=== PATIENT | female | born 1940 | race Caucasian/White ===

== ENCOUNTER → 2023-04-13 07:56 | Outpatient (REF) | payer MEDICARE, OTHER, SELFPAY ==
[2023-04-13 09:32] LABS: % Basophils 0.3 % (0-2); % Eosinophils 1.1 % (0-6); % Immature Granulocytes 0.3 % (0-0.5); % Lymphocytes 23.4 % (20.5-51.1); % Monocytes 6.6 % (1.7-9.3); % Neutrophils 68.3 % (42.2-75.2); Absolute Eosinophils 0.1 10^3/uL (0-0.7); Absolute Lymphocytes 1.8 10^3/uL (1.2-3.4); Absolute Monocytes 0.5 10^3/uL (0.1-0.6); Absolute Neutrophils 5.1 10^3/uL (1.4-6.5); Hematocrit 43.8 % (37.0-47.0); Hemoglobin 14.8 g/dL (12.0-16.0); Mean Corp Hgb Conc. 33.8 g/dL (33.0-37.0); Mean Corpuscular Hgb 30.1 pg (27.0-31.0); Nucleated Red Blood Cells % 0 %; Platelet Count 218 10^3/uL (130-400); Red Blood Cell Count 4.92 10^6/uL (4.20-5.40); Red Cell Dist. Width 13.1 % (11.5-14.5); White Blood Cell Count 7.5 10^3/uL (4.8-10.8)
[2023-04-13 10:18] LABS: ALT (SGPT) 15 U/L (0-35); AST (SGOT) 25 U/L (14-36); Albumin 3.8 g/dl (3.5-5.0); Alkaline Phosphatase 79 U/L (38-126); Blood Urea Nitrogen 14 mg/dl (7-17); Calcium 10.1 mg/dl (8.4-10.2); Carbon Dioxide 29 mmol/L (22-30); Chloride 100 mmol/L (98-107); Glucose 94 mg/dl (70-99); HDL Cholesterol 69 mg/dl; LDL Cholesterol, Calculated 122 mg/dl; Potassium 4.5 mmol/L (3.5-5.1); Sodium 138 mmol/L (135-145); Total Bilirubin 2.3 mg/dl (0.2-1.3); Total Cholesterol 224 mg/dl (50-199); Total Protein 6.1 g/dl (6.3-8.2); Triglyceride 169 mg/dl (10-149); Very Low Density Lipoprotein 33 mg/dl (0-30); eGFR > 60.00
[2023-04-16 04:52] LABS: Albumin 3.94 g/dL (3.75-5.01); Alpha 1 Globulin 0.27 g/dL (0.19-0.46); Alpha 2 Globulin 0.66 g/dL (0.48-1.05); Free Kappa Light Chains,Quant 24.71 mg/L (3.30-19.40); IgA 219 mg/dL (68-408); IgG 622 mg/dL (768-1632); IgM 88 mg/dL (35-263); Immunofixation Electrophoresis IFE Done; Kappa/Lambda Fr Light Ratio 1.87 (0.26-1.65); Total Protein-Electrophoresis 6.3 g/dL (6.3-8.2)
== END ==
LOC: HWLAB 07:56
PROVIDERS: ATTENDING PHYSICIAN Family Medicine
DX: E03.9 Hypothyroidism, unspecified (principal); E78.2 Mixed hyperlipidemia; F32.0 Major depressive disorder, single episode, mild; R77.8 Other specified abnormalities of plasma proteins
CPT/HCPCS: 36415; 80053; 80061; 82784; 83521; 84155; 84165; 85025; 86334

== ENCOUNTER → 2023-05-05 08:09 | Outpatient (REF) | payer MEDICARE, OTHER, SELFPAY ==
[2023-05-05 10:00] LABS: % Basophils 0.5 % (0-2); % Eosinophils 1.3 % (0-6); % Immature Granulocytes 0.3 % (0-0.5); % Lymphocytes 26.9 % (20.5-51.1); % Monocytes 7.9 % (1.7-9.3); % Neutrophils 63.1 % (42.2-75.2); Absolute Eosinophils 0.1 10^3/uL (0-0.7); Absolute Lymphocytes 1.6 10^3/uL (1.2-3.4); Absolute Monocytes 0.5 10^3/uL (0.1-0.6); Absolute Neutrophils 3.8 10^3/uL (1.4-6.5); Hematocrit 41.3 % (37.0-47.0); Mean Corp Hgb Conc. 33.9 g/dL (33.0-37.0); Mean Corpuscular Hgb 29.9 pg (27.0-31.0); Mean Corpuscular Volume 88.1 fL (81.0-99.0); Mean Platelet Volume 10.2 fL (7.4-10.4); Nucleated Red Blood Cells % 0 %; Platelet Count 259 10^3/uL (130-400); Red Blood Cell Count 4.69 10^6/uL (4.20-5.40); Red Cell Dist. Width 13.2 % (11.5-14.5); White Blood Cell Count 6.1 10^3/uL (4.8-10.8)
[2023-05-05 10:20] LABS: ALT (SGPT) 14 U/L (0-35); AST (SGOT) 23 U/L (14-36); Albumin 3.8 g/dl (3.5-5.0); Alkaline Phosphatase 79 U/L (38-126); Blood Urea Nitrogen 17 mg/dl (7-17); Calcium 9.3 mg/dl (8.4-10.2); Carbon Dioxide 29 mmol/L (22-30); Chloride 107 mmol/L (98-107); Glucose 74 mg/dl (70-99); Iron 90 ug/dl (37-170); Potassium 4.3 mmol/L (3.5-5.1); Sodium 138 mmol/L (135-145); Total Bilirubin 1.8 mg/dl (0.2-1.3); Total Protein 6.1 g/dl (6.3-8.2); eGFR > 60.00
[2023-05-05 11:33] LABS: TSH Reflex To Free T4 1.55 uIU/ml (0.47-4.68)
[2023-05-05 11:37] LABS: Ferritin 42.7 ng/ml (11.1-264.0)
[2023-05-05 11:52] LABS: Vitamin B12 731 pg/ml (239-931)
== END ==
LOC: HWLAB 08:09
PROVIDERS: ATTENDING PHYSICIAN Family Medicine
DX: R42 Dizziness and giddiness (principal); E03.9 Hypothyroidism, unspecified; R79.89 Other specified abnormal findings of blood chemistry; R53.83 Other fatigue
CPT/HCPCS: 36415; 80053; 82607; 82728; 83540; 84443; 85025

== ENCOUNTER → 2023-05-23 09:08 | Outpatient (REF) | payer MEDICARE, OTHER, SELFPAY | LOC: HWRCS 09:08 | PROVIDERS: ATTENDING PHYSICIAN Family Medicine | DX: R07.1 Chest pain on breathing (principal) | CPT/HCPCS: 93306 ==

== ENCOUNTER 2023-05-31 18:17 | Observation (INO) | payer MEDICARE, OTHER, SELFPAY ==
[2023-05-31] VITALS (7 sets, daily range): BP systolic 112–149; BP diastolic 63–88; BMI 26.7; BMI 27.5
[2023-05-31 16:06] LABS: % Basophils 0.4 % (0-2); % Eosinophils 0.7 % (0-6); % Immature Granulocytes 0.4 % (0-0.5); % Lymphocytes 23.6 % (20.5-51.1); % Monocytes 7.4 % (1.7-9.3); % Neutrophils 67.5 % (42.2-75.2); Absolute Eosinophils 0.1 10^3/uL (0-0.7); Absolute Lymphocytes 1.7 10^3/uL (1.2-3.4); Absolute Monocytes 0.5 10^3/uL (0.1-0.6); Absolute Neutrophils 4.8 10^3/uL (1.4-6.5); Mean Corpuscular Hgb 30.2 pg (27.0-31.0); Mean Corpuscular Volume 86.2 fL (81.0-99.0); Mean Platelet Volume 10.1 fL (7.4-10.4); Nucleated Red Blood Cells % 0 %; Platelet Count 236 10^3/uL (130-400); Red Blood Cell Count 4.64 10^6/uL (4.20-5.40); White Blood Cell Count 7.2 10^3/uL (4.8-10.8)
[2023-05-31 16:17] LABS: Potassium 3.8 mmol/L (3.5-5.1)
[2023-05-31 16:18] LABS: ALT (SGPT) 19 U/L (0-35); AST (SGOT) 30 U/L (14-36); Alkaline Phosphatase 88 U/L (38-126); Blood Urea Nitrogen 16 mg/dl (7-17); Calcium 9.6 mg/dl (8.4-10.2); Carbon Dioxide 26 mmol/L (22-30); Chloride 100 mmol/L (98-107); Glucose 160 mg/dl (70-99); Sodium 133 mmol/L (135-145); Total Bilirubin 1.6 mg/dl (0.2-1.3); Total Protein 6.3 g/dl (6.3-8.2); eGFR > 60.00
--- NOTE | 2023-05-31 16:40 | ED.CVA ---
History of Present Illness
General
Chief Complaint: CVA/TIA Symptoms
Time Seen by Provider: 05/31/23 15:39
Onset of Stroke Symptoms
Onset of symptoms known: No
Time pt last seen normal is known: No
Travel History
Have you had any contact with someone who has COVID-19?: No
Do you have any symptoms of coronavirus? Fever > 100 degrees, chills, cough, shortness of breath, sore throat, loss of taste or smell, muscle aches, or headache?: No
History of Present Illness
History of Present Illness:
82-year-old female with history of hypercholesterolemia not currently medicated presents for evaluation of intermittent lightheadedness, difficulty with word finding, gait instability ongoing for the past 2 to 3 weeks. She saw her primary care
physician as an outpatient and had an echocardiogram 8 days ago that showed mild aortic sclerosis without stenosis and mild mitral regurgitation, no significant abnormalities otherwise. Underwent outpatient MRI this morning that showed punctate
subacute to acute stroke in the right parietal region. She denies any vision changes or dizziness currently. Denies any chest pain or shortness of breath. Denies any palpitations associated with these lightheaded episodes. No leg swelling or
extremity paresthesias
Past History
Past History
ED Past Medical History: Cancer (lung s/p XRT 2018), Hypercholesterolemia, Hypothyroidism and Other (SHEREE, IBS, renal stones)
ED Past Surgical History: None
Social History
Alcohol: None
Review of Systems
Review of Systems
Allergies reviewed?: Yes
All Other Systems: ROS reviewed and negative except as documented in HPI and ROS
Phy Exam
Physical Exam
Physical Exam:
GEN: Well appearing, NAD, WDWN
HEENT: Oral mucosa moist, no scleral icterus, no nasal congestion
Cardiac: Regular rate
Lung: No respiratory distress, no tachypnea
MSK: No gross deformity or injuries
Skin: Good color, no pallor or jaundice, no rashes
Neuro: AO x3; CN II-XII grossly intact. BUE strength 5/5 in all collins, sensation intact and symmetric. BLE strength 5/5 in all collins, sensation intact and symmetric, no limb ataxia x 4
Psych: Calm, cooperative
Course
Orders/Labs/Results
Orders:
Orders
05/31/23 Dinner
Cholesterol Lowering
At Your Request: Limited Participation
Cholesterol Lowering: Sodium, 2 Gram
05/31/23 15:59
Complete Blood Count/With Diff Urgent
Comprehensive Metabolic Panel Urgent
05/31/23 16:33
Aspirin 325 mg PO NOW STA
Clopidogrel Bisulfate [Plavix] 75 mg PO NOW STA
05/31/23 16:42
Electrocardiogram (*1) Urgent
Reason for Study: QTc Monitoring
EKG- Treatment ONCE
05/31/23 17:41
Admit/Transfer Patient As Directed
Co-Sign Provider:
Level of Care: Observation services
Assign to:: Telemetry
Physician / Group: rory sandoval
Diagnosis: acute /suabcute parietal cva
Reason for Telemetry: CVA/TIA
Date to Stop Telemetry: 06/03/23
Time to Stop Telemetry: 11:00
Reason for Hospitalization: acute /suabcute parietal cva
Code Status As Directed
Resuscitation Status: Full Code
05/31/23 19:41
Acetaminophen [Tylenol] 650 mg PO Q4HPRN PRN
Bisacodyl [Dulcolax] 10 mg RECTAL DAILYPRN PRN
Docusate W/Senna [Senokot-S] 1 tablet PO BIDPRN PRN
Lactobac/Bifidobac [Visbiome] 1 cap PO DAILYPRN PRN
Polyethylene Glycol Powder [Miralax] 17 grams PO DAILYPRN PRN
05/31/23 19:41
Activity As Directed
Activity Level: As Tolerated
Pneumatic Compression Sleeves As Directed
Type: Knee high
Vital Signs As Directed
Frequency: Per unit guidelines
Ot Eval And Treat Routine
Pt Eval And Treat Routine
Activity Level: As Tolerated
DX Deep Vein Thrombosis Video Routine
06/01/23 06:00
Basic Metabolic Panel IN AM
Cardiovascular Evaluation IN AM
Complete Blood Count/With Diff IN AM
Hgba1c [Glycohemoglobin (HgbA1c)] IN AM
Levothyroxine [Synthroid] 88 mcg PO MoTuWeThFrSa@0600
Carotid US [US Cerebrovascular] IN AM
Comment:
Reason For Exam: acute cva
06/01/23 08:00
Aspirin Chewable [Low Strength Aspirin] 81 mg PO DAILY
Clopidogrel Bisulfate [Plavix] 75 mg PO DAILY
06/03/23 11:00
DC Protocol for Telemetry ONCE
06/05/23 08:00
levothyroxine [Tirosint] 176 mcg PO DENIS@0600
Abnormal Lab Results
05/31/23
15:59
Sodium 133 L mmol/L
(135-145)
Glucose 160 H mg/dl
(70-99)
Total Bilirubin 1.6 H mg/dl
(0.2-1.3)
05/31/23 15:59
05/31/23 15:59
Vital Signs
Initial and Last Documented VS:
Initial Vital Signs
Temp Pulse Resp BP Pulse Ox
99.0 F 62 16 145/84 98
05/31/23 15:11 05/31/23 15:11 05/31/23 15:11 05/31/23 15:11 05/31/23 15:11
Last Documented Vital Signs
Temp Pulse Resp BP Pulse Ox
98.1 F 78 18 138/79 98
05/31/23 20:51 05/31/23 20:51 05/31/23 20:51 05/31/23 20:51 05/31/23 20:51
MDM/Problems Addressed
MDM/Problems Addressed:
Patient is currently neurologically intact with no focal deficits. MRI findings were discussed with neurology who recommended admission for further workup and management, dual antiplatelet load started in the emergency department
*Critical Care Note
Total Time (30-74mins, 75-104mins- exclusive of procedures): Not Applicable
ED Attending Note
-
Portions of this chart may have been created with voice recognition software.� Occasional wrong word or��sound alike� substitutions may have occurred due to the inherent limitations of voice recognition software.
Discharge Plan
Departure
Patient Disposition: Admit
Date of Disposition: 05/31/23
Time of Disposition: 16:43
Admit to: Telemetry
Presentation/result/management discussed w/ accepting MD/DO: Hospitalist
Discharge Problem:
Parietal lobe infarction
Interventions
Interventions:
*Risk Screen - Suicide Last Done: 05/31/23 18:30
*General Assessment Last Done: 05/31/23 15:11
*Neglect/Abuse Screening Last Done: 05/31/23 15:11
ED- Fall Risk Assessment Last Done: 05/31/23 15:55
*ED COVID-19 Vaccine History Last Done: 05/31/23 18:30
*Nursing Disposition Last Done: 05/31/23 19:47
ED- Pulmonary Assessment Last Done: 05/31/23 15:55
ED- Neurological Assessment Last Done: 05/31/23 15:55
ED- Cardiac Assessment Last Done: 05/31/23 15:55
ED Swallowing Screen Last Done: 05/31/23 15:55
Discharge Date and Time
Discharge Date/Time: 05/31/23 19:48
--- NOTE | 2023-05-31 17:02 | HPS.HSE ---
Family Physician
-
Family Physician: Ronni Han
Chief Complaint
-
Abnormal MRI, lightheadedness, frontal headache, gait instability, difficulty with word finding x 6 weeks
History of Present Illness
82-year-old female complaining of intermittent lightheadedness, frontal headache, gait instability and difficulty with word finding over the past 6 weeks. She reports she went to an outpatient [facility] center and they were unable to figure out what
was going on. She then went to her PCP who ordered an MRI. She had outpatient MRI this morning 05/31/2023 showing a acute to subacute punctate right parietal infarct. She reports she had outpatient echo 8 days ago showing mild aortic sclerosis
without stenosis and mild mitral regurg. She denies current headache, dizziness, blurred vision, fever, chills, chest pain, palpitations, shortness breath, cough, abdominal pain, nausea, vomiting, diarrhea, urinary symptoms. She has past medical
history of lung cancer status post XRT 2018, SHEREE, HLD, hypothyroidism, IBS, renal calculi.
Medical History
Past Medical History
Past Medical History: Reports Other
Additional Past Medical History:
Adenocarcinoma lung cancer status post XRT 2018,
SHEREE resolved with weight loss per patient
HLD
hypothyroidism
IBS
renal calculi
Macular degeneration right eye
Past Surgical History: Reports Other
Additional Past Surgical History:
Bilateral shoulder replacements, bilateral meniscus repair
Social History
Tobacco: Non-smoker
Alcohol: None
Drug: None
Personal: Single
Living: Alone
Employment: Retired
Family History
Family History: Other (Mother complications of lupus, CHF, father leukemia at age 57 patient's 1 brother unsure of medical problems)
Allergies / Home Medications
Allergies reflects when Allergies were last updated in [facility].
Home Medications with original date entered in [facility]
Allergy/Medication List:
Allergies
Allergy/AdvReac Type Severity Reaction Status Date / Time
wheat Allergy Mild Unknown Verified 06/19/21 10:48
Cephalosporins Allergy Patient is Verified 07/10/21 09:51
unaware of
this
allergy
metronidazole [From Flagyl] Allergy Rash Verified 06/19/21 10:48
Penicillins Allergy Rash. Verified 06/19/21 10:48
Shortness
of breath.
levofloxacin [From Levaquin] AdvReac joint pain Verified 06/19/21 10:48
oxycodone [Oxycodone] AdvReac agitation Verified 06/19/21 10:48
[id number] Reductase AdvReac Myalgias Verified 06/19/21 10:48
Inhibitor
iv contrast dye Allergy Unknown Anaphylaxis Uncoded 04/07/21 11:36
airborne type allergies Allergy nasal Uncoded 04/07/21 11:36
symptoms
Home Medications
Lactobac no.2-Bifidobac no.1-S. thermo 112.5 billion cell capsule (Visbiome) 1 cap PO DAILY PRN supplement 05/31/23
acetaminophen 500 mg tablet (Tylenol Extra Strength) 1,000 mg PO DAILYPRN PRN severe pain 05/31/23
acetaminophen 500 mg tablet (Tylenol Extra Strength) 500 mg PO DAILYPRN PRN mild pain 05/31/23
levothyroxine 88 mcg capsule (Tirosint) 88 mcg PO MOTUWETHFRSA@0800 05/31/23
levothyroxine 88 mcg capsule (Tirosint) 176 mcg PO DENIS@0800 05/31/23
psyllium seed (sugar) oral powder 1 tsp PO DAILYPRN PRN constipation 05/31/23
vit C 250 mg-vit E 90 mg-zinc 40 mg-copper 1 [id number] capsule (PreserVision AREDS-2) 1 tab PO BID 05/31/23
Review of Systems
-
History Source: Patient and Family (Daughter at bedside)
A 12 point ROS was completed and negative except as noted: Yes
Constitutional: Denies Fever or Chills
EENT: Reports Other (Intermittent word finding difficulty); Denies Sore Throat
Respiratory: Denies Cough or Trouble Breathing
Cardiac: Denies Chest Pain, Diaphoresis, Palpitations or Syncope
Abdomen/GI: Denies Abdominal Pain, Nausea, Vomiting, Diarrhea, Constipated, Bloody Stools or Black Stools
: Denies Dysuria, Frequency, Flank Pain, Incontinence, Difficulty Voiding or Urgency
Musculoskeletal: Denies Joint Pain or Edema
Skin: Denies Itching or Rash
Neurological: Reports Dizzy (Intermittent) and Headache (Intermittent frontal headache); Denies Weakness or Numbness
Endocrine: Reports No Symptoms
Hematologic/Lymphatic: Reports No Symptoms
Psych: Reports Calm
Physical Exam
Vital Signs
Vital Signs
Temp Pulse Resp BP Pulse Ox
99.0 F 89 12 112/63 96
05/31/23 15:11 05/31/23 15:45 05/31/23 15:45 05/31/23 15:42 05/31/23 15:45
Physical Exam
General: No Apparent Distress, Comfortable and Conversant; No Pain, Fever or Chills
HEENT: NormoCephalic, Anicteric, PERRLA, [place] Conjunctivae, No Ptosis and Neck Nontender
Respiratory: Clear; No Wheezes, Rales or Rhonchi
Cardiac: S1/S2, Regular Rhythm and Murmur (2/6); No Rub, Gallop or Peripheral Edema
GI: Soft, Non Tender, Non Distended, Normal Bowel Sounds and No Hepatosplenomegaly
Rectal: Deferred by Provider
Genito-urinary: Deferred by me
Musculoskeletal: No Clubbing, No Cyanosis and No Edema
Skin: Warm and Dry; No Rash
Neuro: AO x 3, No Motor Deficits, Nonfocal/grossly intact, Cranial Nerves Intact and No Sensory Deficits; No Slurred Speech, Facial Droop or Tremors
Psych: Calm
Laboratory Results
-
05/31/23 15:59
05/31/23 15:59
Laboratory Results
Total Bilirubin 1.6 mg/dl (0.2-1.3) H 05/31/23 15:59
AST 30 U/L (14-36) 05/31/23 15:59
ALT 19 U/L (0-35) 05/31/23 15:59
Alkaline Phosphatase 88 U/L (38-126) 05/31/23 15:59
Impression/Plan
-
Impression/plan:
Observation telemetry
#Acute/subacute right parietal lobe infarct
-Consult neuro
-check lipid profile, HgbA1c
-Aspirin 81 mg daily, Plavix 75 mg daily no statins due to allergy with myalgias
-Check carotid ultrasound
-PT/OT/case management eval
MRI brain: Punctate acute/subacute nonhemorrhagic right parietal lobe infarct
2D echo 05/23/2023: EF 65-70%, mild LVH, mild MR, aortic sclerosis without stenosis, trace TR(read by [facility] cardiology)
#HLD
-Check lipid profile
#Hypothyroidism/total thyroidectomy benign polyps
Continue levothyroxine 88 mcg daily except Sundays 176 mcg
# Adenocarcinoma lung cancer status post XRT 2017
#SHEREE
-Used former CPAP sleep apnea resolved with weight loss per patient
#IBS hx
#Renal calculi Hx
#Macular degeneration right eye
Follows with ophthalmology has been stable
DVT prophylaxis
SCDs
Full code
[2023-05-31] MEDS: ASPIRIN 325 MG PO (17:08)
[2023-05-31] MEDS: PLAVIX 75 MG PO (17:08)
--- NOTE | 2023-05-31 18:49 | W.PN.UPDATE ---
Update Note
Progress Note Update
This is an addendum to the H&P written by nurse practitioner Jane Mares on 05/31/2023.
Patient seen and examined independently with [facility].� 82-year-old female past medical history of lung cancer status post XRT, obstructive sleep apnea, hyperlipidemia, hypothyroidism, IBS, presenting with gait instability/frontal headache/intermittent
lightheadedness and word finding difficulty for the past 6 weeks.� He had outpatient MRI today which showed acute/subacute right parietal infarct.� Recently had echocardiogram which showed EF of 65 to 70%, mild mitral regurgitation.
Started aspirin and Plavix.� Check carotid ultrasound.� Neurology consulted.� PT/OT.
--- NOTE | 2023-05-31 19:49 | PTCARENOTE ---
pt arrived from ed, walked in, tele placed, VSS, pt [id number], see MAR and assessment for further details. call cedeno within reach.
[2023-05-31] MEDS: TYLENOL 650 MG PO (19:56)
[2023-06-01] MEDS: TYLENOL 650 MG PO ×2 (03:28→12:42)
[2023-06-01 03:43] VITALS: BP 143/82
[2023-06-01 06:00] LABS: % Basophils 0.5 % (0-2); % Immature Granulocytes 0.2 % (0-0.5); % Lymphocytes 31.2 % (20.5-51.1); % Monocytes 8.1 % (1.7-9.3); Absolute Eosinophils 0.1 10^3/uL (0-0.7); Absolute Lymphocytes 1.9 10^3/uL (1.2-3.4); Absolute Monocytes 0.5 10^3/uL (0.1-0.6); Absolute Neutrophils 3.5 10^3/uL (1.4-6.5); Hematocrit 39.7 % (37.0-47.0); Hemoglobin 13.3 g/dL (12.0-16.0); Mean Corp Hgb Conc. 33.5 g/dL (33.0-37.0); Mean Corpuscular Hgb 29.6 pg (27.0-31.0); Mean Corpuscular Volume 88.4 fL (81.0-99.0); Mean Platelet Volume 9.7 fL (7.4-10.4); Nucleated Red Blood Cells % 0 %; Platelet Count 187 10^3/uL (130-400); Red Blood Cell Count 4.49 10^6/uL (4.20-5.40); Red Cell Dist. Width 12.8 % (11.5-14.5)
[2023-06-01] MEDS: NON-FORMULARY ITEM 1 UNIT PO (06:50)
[2023-06-01 06:55] LABS: Blood Urea Nitrogen 18 mg/dl (7-17); Calcium 9.5 mg/dl (8.4-10.2); Carbon Dioxide 29 mmol/L (22-30); Chloride 104 mmol/L (98-107); Estimated Creatinine Clearance 56 ml/min; Glucose 88 mg/dl (70-99); HDL Cholesterol 67 mg/dl; LDL Cholesterol, Calculated 105 mg/dl; Potassium 4.4 mmol/L (3.5-5.1); Sodium 137 mmol/L (135-145); Total Cholesterol 196 mg/dl (50-199); Triglyceride 121 mg/dl (10-149); Very Low Density Lipoprotein 24 mg/dl (0-30); eGFR > 60.00
[2023-06-01 07:37] VITALS: BP 122/81
[2023-06-01] MEDS: PLAVIX 75 MG PO (07:42)
[2023-06-01] MEDS: LOW STRENGTH ASPIRIN 81 MG PO (07:42)
--- NOTE | 2023-06-01 08:03 | CON.NEURO4 ---
Addendum entered and electronically signed by Ignacio Desir MD 06/01/23 15:45:
I saw and evaluated the patient I reviewed the note by Linette Saldivar agree with the findings the following comments:
82-year-old woman right-handed who presents to the hospital after outpatient finding of MRI brain demonstrating 2 recent ischemic infarctions. Brain MRI was obtained due to the patient having had dizziness and being off balance. She had first
started to have some unusual neurologic symptoms at the end of March with frontal headache vision change bilaterally as well as dizziness. Is also felt an off-balance feeling. No overt weakness or speech difficulty. Does not take chronic
antiplatelet.
Neurologic examination unremarkable
Brain MRI shows a subacute ischemic stroke in the left parietal lobe as well as more acute appearing infarct in the right frontal lobe
Carotid ultrasound shows less than 50% stenosis bilaterally
Assessment: Embolic strokes, no significant carotid stenosis. Cardioembolic would be a important consideration but this could also be atheroembolic stroke.
Recommendations
-Aspirin and Plavix for 21 days total then aspirin thereafter
-Would start with short course of 1 to 2 weeks Holter cardiac monitoring and if this is negative would pursue implanted cardiac Linq monitor
-Discussed with patient my recommendation that she consider Zetia as she does not tolerate any statins
-No further workup as an inpatient necessary needs neurology follow-up in 4 to 6 weeks as well as PCP follow
Original Note:
Documented by User: Linette Harper NP 06/01/23 13:45
Consultation - Neurology 4
-
CONSULTING PHYSICIAN: Lee Desir MD
REFERRING PHYSICIAN: Hospitalists/
DICTATED BY: LUBNA Grijalva
DATE/TIME OF REQUEST: 06/01/23
DATE/TIME OF CONSULTATION: 06/01/23
Reason for Consultation: CVA
History of Present Illness:
This is an 82-year-old right-handed female who has presented to the hospital with report of outpatient MRI brain demonstrating an acute right parietal ischemic stroke. Patient reports that 6-7 weeks ago developing floaters in bilateral eyes, a
frontal headache, and a dizzy sensation like the room was spinning. The spinning sensation only lasted a few minute, but was followed by a constant sensation of feeling off-balance when walking. She typically walks a mile per day and hasn't felt
comfortable doing this anymore. She endorses an intermittent, almost daily dull frontal headache that she rates a 3-4/10. Additionally, she had an episode of a nava curtain coming down over the top 1/3 of her left eye vision, this resolved in 2-3
minutes. She reports having the same thing happen with the right eye briefly in the past as well. She also had periodic episodes of word finding difficulty. She endorses a left-sided chest strain sensation as well that feels like she pulled a
muscle. She was evaluated by her PCP for these symptoms early in April 2023. She had an echo on 05/23/23 that demonstrated mild aortic sclerosis without stenosis and mild mitral regurgitation. She also went to outpatient vestibular therapy and was
told they could not find a peripheral source of her dizziness. She had an outpatient MRI brain on 05/31/23 which demonstrates a punctate acute/subacute nonhemorrhagic ischemic right parietal lobe infarct in addition to an old left parietal lobe
ischemic infarct. She was referred immediately to the ER for evaluation. She is not a candidate for TNK/IAT due to being outside of the time window, NIHSS <6, no evidence of LVO. She was loaded with aspirin and provided Plavix in the ER. Currently,
patient denies any headache, dizziness, vision changes, speech/swallow difficulty, numbness, weakness, nausea, shortness of breath, and palpitations. She does endorse her ongoing left chest strain sensation. She denies any history of TIA, stroke, or
events similar to this in the past. She reports taking 'every statin there is' and having muscle cramping from all of them. She also reports that she is supposed to be taking aspirin 81mg daily for cardiac purposes but she stopped taking it months
ago.
Past Medical History: HLD, hypothyroidism, lung cancer s/p XRT, neuropathy, SHEREE, IBS, renal calculi, macular degeneration
Surgical History: b/l meniscus repair, b/l shoulder replacement
Family History: Mother- Lupus, Father- leukemia.
Social History: Former smoker. Occasional alcohol. Denies illicit drug use.
Allergies: See below.
Home Medications: See below.
Review of Symptoms:
Patient denies any fever, headache, chest pain, shortness of breath, GI or symptoms.
�Per the HPI.�All systems are reviewed negative except above.
Physical Exam:
The patient is afebrile, abdomen is nondistended, breathing is unlabored, skin is warm and dry, no edema.
NIH Stroke Scale:
I performed the NIH stroke scale on the patient on 06/01/23 at 0930. The patient scored 0 points on the NIH stroke scale assessment, which were assigned as follows: See below.
Neurologic Examination:
The patient is awake, alert and oriented x 3. She is able to follow commands and answer questions appropriately. There is no aphasia or dysarthria. On cranial nerve assessment, pupils are 3 mm bilateral, round and reactive to light and
accommodation. Visual morrell are full. Extraocular movements are intact. Facial sensations are intact and bilaterally symmetrical, there is no facial asymmetry. Hearing is intact bilaterally to normal conversation volume. Tongue palate and uvula
are midline. Sternocleidomastoid strengths are full bilaterally. Motor strengths are 5/5 bilateral upper and lower extremities on medical research [place] scale. There is no drift or involuntary movement noted. Deep tendon reflexes are 2+ bilateral
upper and lower extremities and Babinski is absent bilaterally. Sensations of pain, touch, temperature and vibration are intact and bilaterally symmetrical. There was no extinction noted on double simultaneous stimulation. Coordination is intact by
finger to nose bilaterally.
Lab Results: See below.
Neuro Imaging:
1. MRI brain 05/31/23: Punctate 3 mm focus of restricted diffusion in the right parietal lobe (post central gyrus) in keeping with acute/subacute infarct. No associated hemorrhage. Old left parietal lobe infarct.
2. Carotid ultrasound 06/01/23: <50% stenosis bilaterally.
Differentials for the patient's presentation include:
1. Acute/subacute punctate right parietal lobe ischemic infarct.
2. Old right parietal lobe ischemic stroke.
Patient has the following risk factors for their symptoms: HLD, age
IV Tenecteplase/IAT candidacy: She is not a candidate for TNK/IAT due to being outside of the time window, NIHSS <6, no evidence of LVO.
Recommendations:
-Continue DAPT with aspirin 81mg and Plavix 75mg daily for 21 days. After 21 days, discontinue Plavix and continue aspirin 81mg daily only, indefinitely.
-Patient needs outpatient Holter monitoring for 1-2 weeks. If this is unremarkable, recommend follow-up with Dr. Putnam patient's community administrator for ILR.
-Goal normotension as this event happened >24 hours ago.
-LDL goal <70. LDL is 105. Patient is statin intolerant and refusing Zetia currently, patient to consider Zetia initiation.
-Goal normoglycemia, hbA1c is 5.1.
-NIHSS and neurological checks per unit guidelines.
-Provide patient with stroke education packet.
-PT/OT/ST evaluations.
-DVT prophylaxis.
-Patient should follow-up with Neurology in about 4 weeks, may see the [employer] [employer] or one of the physicians.
Discussed patient care with: Dr. Desir, the patient
Vital Signs and Labs
-
Vital Signs and Labs:
Vital Signs
Temp Pulse Resp BP Pulse Ox
98.9 F 73 17 122/81 95
06/01/23 07:37 06/01/23 07:37 06/01/23 07:37 06/01/23 07:37 06/01/23 07:37
Lab Results
06/01/23 05:48
06/01/23 05:48
Sodium 137 mmol/L (135-145) 06/01/23 05:48
Potassium 4.4 mmol/L (3.5-5.1) 06/01/23 05:48
BUN 18 mg/dl (7-17) H 06/01/23 05:48
Glucose 88 mg/dl (70-99) 04/10/24 05:48
Calcium 9.5 mg/dl (8.4-10.2) 06/01/23 05:48
LDL Cholesterol, Calc 105 mg/dl 06/01/23 05:48
Medications
-
Active Medications
Generic Name Dose Route Start Last Admin
Trade Name Freq PRN Reason Stop Dose Admin
Acetaminophen 650 mg 05/31/23 19:41 06/01/23 03:28
Acetaminophen 325 Mg Tablet PO 06/28/23 19:40 650 mg
Q4HPRN PRN Administration
mild pain/BEAN/temp> 100.4F
Aspirin 81 mg 06/01/23 08:00 06/01/23 07:42
Aspirin 81 Mg Chewable Tablet PO 06/29/23 07:59 81 mg
DAILY BRUNO Administration
Bisacodyl 10 mg 05/31/23 19:41
Bisacodyl 10 Mg Rectal Suppository RECTAL 06/28/23 19:40
DAILYPRN PRN
constipation
Clopidogrel Bisulfate 75 mg 06/01/23 08:00 06/01/23 07:42
Clopidogrel 75 Mg Tablet PO 06/22/23 07:59 75 mg
DAILY BRUNO Administration
Lactobacillus/Bifidobacterium 1 cap 05/31/23 19:41
Lactobac/Bifidobac (Visbiome) PO 06/28/23 19:40
DAILYPRN PRN
supplement
Tirosint 88mcg Daily 0 unit 06/01/23 07:00 06/01/23 06:50
Tuesday Through PO 06/29/23 06:59 1 unit
Tuesday MoTuWeThFrSa@0600 BRUNO Administration
Tirosint 2 X 88mcg ( 0 unit 06/05/23 06:00
176mcg) Tuesday At PO 07/03/23 05:59
0600 DENIS@0600 BRUNO
Polyethylene Glycol 17 grams 05/31/23 19:41
Polyethylene Glycol Powder 17 Grams Packet PO 06/28/23 19:40
DAILYPRN PRN
constipation
Senna/Docusate Sodium 1 tablet 05/31/23 19:41
Docusate W/Senna (Disha-Colace) Tablet PO 06/28/23 19:40
BIDPRN PRN
constipation
Sodium Chloride 0 flush 05/31/23 20:00
Sodium Chloride 0.9% (Flush) Syringe IV 06/28/23 19:59
PER PROTOCOL BRUNO
Home Medications
�Medication �Instructions �Recorded
Lactobac no.2-Bifidobac no.1-S. 1 cap PO DAILY PRN supplement 05/31/23
thermo 112.5 billion cell capsule
(Visbiome)
acetaminophen 500 mg tablet 1,000 mg PO DAILYPRN PRN severe 05/31/23
(Tylenol Extra Strength) pain
acetaminophen 500 mg tablet 500 mg PO DAILYPRN PRN mild pain 05/31/23
(Tylenol Extra Strength)
levothyroxine 88 mcg capsule 88 mcg PO MOTUWETHFRSA@0800 05/31/23
(Tirosint)
levothyroxine 88 mcg capsule 176 mcg PO DENIS@0800 05/31/23
(Tirosint)
psyllium seed (sugar) oral powder 1 tsp PO DAILYPRN PRN constipation 05/31/23
vit C 250 mg-vit E 90 mg-zinc 40 1 tab PO BID 05/31/23
mg-copper 1 [id number]
capsule (PreserVision AREDS-2)
NIH Stroke Score
Subsequent NIH Scale
Date of Subsequent NIH Scale: 06/01/23
Time of Subsequent NIH Scale: 09:30
NIH Stroke Score
Level of Consciousness: 0 - Alert
LOC Questions: 0-Answers both correctly
LOC Commands: 0-Performs both correctly
Best Horizontal Gaze: 0-Normal
Visual Morrell: 0=Normal, no visual loss
Facial Palsy: 0=Normal, symmetrical
Motor - Right Arm: 0=No drift 10 seconds
Motor - Left Arm: 0=No drift 10 seconds
Motor - Right Le-No drift 5 seconds
Motor - Left Le-No drift 5 seconds
Limb Ataxia: 0-Absent
Sensation: 0-Normal
Best Language: 0-No aphasia
Dysarthria: 0-Normal
Extinction and Inattention: 0-No abnormality
Total Score:: 0
Modified [place] (mRS) Score
Modified [place] Scale (mRS): No significant disability. Able to carry out usual activities.
Score: 1

Documented by User: Ignacio Desir MD 06/01/23 15:42
NIH Stroke Score
NIH Stroke Score
Total Score:: 0
Modified [place] (mRS) Score
Score: 1
[2023-06-01 09:40] LABS: Glycohemoglobin (HgbA1c) 5.1 % (4.0-5.6)
[2023-06-01 10:10] VITALS: BP 144/86; PULSE 87
[2023-06-01 10:15] VITALS: BP 144/86; PULSE 87
--- NOTE | 2023-06-01 10:25 | PTOTSP ---
pt currently demonstrates ability to complete simple ADLs, functional transfers, ambulation wtih supervision to no assistance. pt demosntrates good insight to safety, ability to complete direction without difficulty. no acute OT needs identified at
this time, will sign off.
--- NOTE | 2023-06-01 10:28 | PTOTSP ---
The patient was able to ambulate in the hallway, no strength deficits noted. Patient had just started Outpatient PT to address higher-level balance deficits, so would recommend resuming upon discharge home. Otherwise no acute PT needs at this time,
will sign off.
--- NOTE | 2023-06-01 10:56 | PTOTSP ---
DOCUMENT CONTROL COORDINATOR Evaluations
Patient presents with signs concerning for possible mild oral/pharyngeal dysphagia, mild dysphonia (hoarse vocal quality), and occasional mild changes to expressive language (i.e., word finding pauses, semantic paraphasia x1 self-corrected) which
did not impact functional communication.
Quick Aphasia Battery Form 1 overall score was 9.51 which is WFL with no signs of aphasia. SLUMS cognitive screen score was 27/30 which is WFL for her level of education. Patient reported a history of a baseline learning disability (i.e.,
auditory/phoneme discrimination), changes to short term memory (i.e., name recall), and changes to facial recognition prior to admission. She feels she is functioning at her baseline.
Recommend:
1. Regular, Thin Liquids
2. Strategies: upright to 90 degrees, avoid and/or strain mixed consistencies (i.e., juicy fruit, cereal with milk, soup with pieces), reflux precautions
3. Medications as best tolerated
4. Will follow up for dysphagia therapy at the acute care level and for higher level cognitive linguistic/language assessment as appropriate.
[2023-06-01 11:32] VITALS: BP 128/78
--- NOTE | 2023-06-01 11:50 | W.PN.HOSP.TC ---
Addendum entered and electronically signed by Jaxson Vo MD 06/02/23 15:29:
[id number]
Original Note:
Today's Communication/Plan
-
asa, plavix (21 days)
f/u cards for cholesterol lowering drugs as refuses zetia/statin
f/u pcp, neurology, cards outpatient
Assessment / Plan
Assessment / Plan
General: No Apparent Distress, Comfortable and Conversant; No Pain, Fever or Chills
HEENT: NormoCephalic, Anicteric, PERRLA, [place] Conjunctivae, No Ptosis and Neck Nontender
Respiratory: Clear; No Wheezes, Rales or Rhonchi
Cardiac: S1/S2, Regular Rhythm and Murmur (03/29); No Rub, Gallop or Peripheral Edema
GI: Soft, Non Tender, Non Distended, Normal Bowel Sounds and No Hepatosplenomegaly
Musculoskeletal: No Clubbing, No Cyanosis and No Edema
Skin: Warm and Dry; No Rash
Neuro: AO x 3, No Motor Deficits, Nonfocal/grossly intact, Cranial Nerves Intact and No Sensory Deficits; No Slurred Speech, Facial Droop or Tremors
Psych: Calm
#Acute/subacute right parietal lobe infarct
-Carotid US with mild disease
-LDL 105 - refuses statin due to reaction and refuses zetia
-f/u Cards for titration of cholesterol meds
-Aspirin 81 mg daily, Plavix 75 mg daily (21 days)
-PT/OT/case management eval
-f/u neurology outpatient
#HLD
-LDL 105 - refuses zetia/statin
-f/u cards outpatient for titration
#Hypothyroidism/total thyroidectomy benign polyps
Continue levothyroxine 88 mcg daily except Sundays 176 mcg
# Adenocarcinoma lung cancer status post XRT 2017
#SHEREE
-Used former CPAP sleep apnea resolved with weight loss per patient
#IBS hx
#Renal calculi Hx
#Macular degeneration right eye
Follows with ophthalmology has been stable
More than 30 minutes spent in discharge including
Final examination of the patient
Summarizing hospital stay
Instructions for continuing care to all relevant caregivers
Preparation of discharge records, prescriptions, and referral forms
Total time spent (35 in minutes):
Anticipated Discharge: Today
Subjective/Interval History
-
Date of Service: June 01, 2023
No acute events overnight
Objective Data
-
Labs:
Laboratory Results
06/01/23
05:48
WBC 6.0
Hgb 13.3
Hct 39.7
Plt Count 187 D
Sodium 137
Potassium 4.4
Chloride 104
Carbon Dioxide 29
BUN 18 H
Creatinine 0.7
Glucose 88
Calcium 9.5
Vital Signs:
Vital Signs
Temp Pulse Resp BP Pulse Ox
98.9 F 87 17 128/78 98
06/01/23 11:32 06/01/23 11:32 06/01/23 11:32 06/01/23 11:32 06/01/23 11:32
I&O
05/31/23 06/01/23 06/02/23
06:59 06:59 06:59
Intake Total 480 / 480
Balance 480 / 480
Review of Systems
-
History Source: Patient
All other systems: Not reviewed unless documented
Data Reviewed
-
Ultrasound: Report Reviewed by me
MRI: Report Reviewed by me
Labs: Labs Reviewed by me
--- NOTE | 2023-06-01 12:00 | PTCARENOTE ---
pt c/o left lateral transient CP. pt states she beleive it is muscular and describes: 'it hurts more when I get up or If I bend over or reach' Attending notified troponin and EKG. Pt then reports this pain has been intermittent since March
[2023-06-01 12:41] LABS: Troponin I < 0.012 ng/ml
--- NOTE | 2023-06-01 13:57 | W.DS.TRANS ---
DC Summary - Service Technician Copier
-
Discharge Instructions:
Discharge Diagnosis/Procedures Punctate acute/subacute nonhemorrhagic right
parietal lobe infarct.
Diet Low Cholesterol,Low Fat
Activity As tolerated
Instructions:
Stand-Alone Forms:
Changes to Home Medications: Yes
Discharge Medications:
DC Medications w/original date entered in [employer]
Lactobac no.2-Bifidobac no.1-S. thermo 112.5 billion cell capsule (Visbiome) 1 cap PO DAILY PRN supplement 05/31/23
acetaminophen 500 mg tablet (Tylenol Extra Strength) 1,000 mg PO DAILYPRN PRN severe pain 05/31/23
acetaminophen 500 mg tablet (Tylenol Extra Strength) 500 mg PO DAILYPRN PRN mild pain 05/31/23
levothyroxine 88 mcg capsule (Tirosint) 88 mcg PO MOTUWETHFRSA@0800 Thyroid 05/31/23
levothyroxine 88 mcg capsule (Tirosint) 176 mcg PO DENIS@0800 throid 05/31/23
psyllium seed (sugar) oral powder 1 tsp PO DAILYPRN PRN constipation 05/31/23
vit C 250 mg-vit E 90 mg-zinc 40 mg-copper 1 rt-savsdx-daeurs capsule (PreserVision AREDS-2) 1 tab PO BID Supplement 05/31/23
aspirin 81 mg chewable tablet (Children's Aspirin) 81 mg PO DAILY 30 days #30 tabs 06/01/23
clopidogrel 75 mg tablet 75 mg PO DAILY 21 days #21 tabs 06/01/23
Home Medication Changes
aspirin 81 mg chewable tablet (Children's Aspirin) 81 mg PO DAILY 30 days #30 tabs 06/01/23
clopidogrel 75 mg tablet 75 mg PO DAILY 21 days #21 tabs 06/01/23
Pending Results: No
--- NOTE | 2023-06-01 14:42 | CM ---
Met with patient at the bedside; initial assessment completed
Pharmacy verified; [facility], [facility]
Primary Contact: Daughter, Bing Newton; lives nearby
Patient reported that she lives alone in a multilevel home; 1 step to enter; 12 steps down to basement; bath and bedroom on 1st floor; bath has walk-in shower with grab bar and built in bench
PLOF: patient reported she is independent with ambulation, stairs, and ADLs; Drives. Railing on both side of stairs going down to basement
SNF/Rehab/Home Care utilization history: [facility] years ago for Physical Therapy and an aid to assist with personal care
Transport: daughterBing, will provide ride home
Plan: discharge to home today; Per PT, she will resume outpatient therapy
[2023-06-01 15:20] VITALS: BP 154/90
== END 2023-06-01 16:14 | disposition home or self-care (01) ==
LOC: 3 WEST ACU 18:17
PROVIDERS: Clinical Nurse Specialist Family Health; Physician Assistant; ADMITTING PHYSICIAN Hospitalist; ATTENDING PHYSICIAN Internal Medicine; EMERGENCY PHYSICIAN Emergency Medicine; FAMILY PHYSICIAN Family Medicine; OTHER PHYSICIAN Student in an Organized Health Care Education/Training Program
DX: I63.89 Other cerebral infarction (principal); E78.00 Pure hypercholesterolemia, unspecified; E89.0 Postprocedural hypothyroidism; G47.33 Obstructive sleep apnea (adult) (pediatric); K58.9 Irritable bowel syndrome, unspecified; H35.30 Unspecified macular degeneration; R47.01 Aphasia; R26.89 Other abnormalities of gait and mobility; Z79.899 Other long term (current) drug therapy; Z85.118 Personal history of other malignant neoplasm of bronchus and lung; Z87.442 Personal history of urinary calculi; Z87.891 Personal history of nicotine dependence
CPT/HCPCS: 70551; 80048; 80053; 80061; 83036; 84484; 85025; 92610; 93005; 93880; 97162; 97165; 99285; G0378

== ENCOUNTER → 2023-06-03 09:16 | Outpatient (REF) | payer MEDICARE, OTHER, SELFPAY ==
[2023-06-03 10:42] LABS: C-Reactive Protein < 5.00 mg/L (0.0-10.00)
[2023-06-04 20:47] LABS: Homocysteine 18 umol/L (0-15)
== END ==
LOC: REG 09:16
PROVIDERS: ATTENDING PHYSICIAN Family Medicine
DX: E78.2 Mixed hyperlipidemia (principal); R93.1 Abnormal findings on diagnostic imaging of heart and coronary circulation; Z79.899 Other long term (current) drug therapy
CPT/HCPCS: 36415; 83090; 86140

== ENCOUNTER → 2023-06-23 07:48 | Outpatient (REF) | payer MEDICARE, OTHER, SELFPAY ==
[2023-06-23 10:06] LABS: % Basophils 0.6 % (0-2); % Eosinophils 2.1 % (0-6); % Immature Granulocytes 0.3 % (0-0.5); % Lymphocytes 23.6 % (20.5-51.1); % Monocytes 7.4 % (1.7-9.3); Absolute Eosinophils 0.2 10^3/uL (0-0.7); Absolute Lymphocytes 1.7 10^3/uL (1.2-3.4); Absolute Monocytes 0.5 10^3/uL (0.1-0.6); Absolute Neutrophils 4.8 10^3/uL (1.4-6.5); Hematocrit 41.8 % (37.0-47.0); Hemoglobin 14.1 g/dL (12.0-16.0); Mean Corp Hgb Conc. 33.7 g/dL (33.0-37.0); Mean Corpuscular Hgb 30.1 pg (27.0-31.0); Mean Corpuscular Volume 89.1 fL (81.0-99.0); Mean Platelet Volume 9.8 fL (7.4-10.4); Nucleated Red Blood Cells % 0 %; Platelet Count 223 10^3/uL (130-400); Red Blood Cell Count 4.69 10^6/uL (4.20-5.40); Red Cell Dist. Width 13.1 % (11.5-14.5); White Blood Cell Count 7.2 10^3/uL (4.8-10.8)
[2023-06-23 11:31] LABS: ALT (SGPT) 18 U/L (0-35); AST (SGOT) 26 U/L (14-36); Alkaline Phosphatase 91 U/L (38-126); Blood Urea Nitrogen 15 mg/dl (7-17); Calcium 9.4 mg/dl (8.4-10.2); Carbon Dioxide 27 mmol/L (22-30); Chloride 103 mmol/L (98-107); Glucose 76 mg/dl (70-99); Potassium 4.3 mmol/L (3.5-5.1); Sodium 133 mmol/L (135-145); Total Bilirubin 1.6 mg/dl (0.2-1.3); Total Protein 6.4 g/dl (6.3-8.2); eGFR > 60.00
[2023-06-24 22:20] LABS: Beta-2-Glycoprotein I Ab. IgG <10 SGU (<=20); Beta-2-Glycoprotein I Ab. IgM <10 SMU (<=20)
[2023-06-24 22:39] LABS: Cardiolipin IgA Antibody <10 APL (<=11); Cardiolipin IgM Antibody <10 MPL (<=12); Cardiolipin Igg Antibody <10 GPL (<=14)
[2023-06-25 04:00] LABS: Beta-2-Microglobulin 2.2 mg/L (<=3.0)
[2023-06-26 13:23] LABS: Anti-Xa Qualitative Interp Not Performed (Not Present); Anticoagulant Med Neutralizati Not Performed (Not Performed); Hexagonal Phospholipid Confirm Not Performed s (<=7.9); Neutralized PTT-LA Ratio Not Performed (<=1.20); Neutralized dRVTT Screen Ratio Not Performed (<=1.20); PTT-LA Ratio 0.95 (<=1.20); Prothrombin Time 13.8 s (12.0-15.5); Thrombin Time Not Performed s (<=19.5); dRVTT 1.1 Mix Ratio Not Performed (<=1.20); dRVTT Confirmation Ratio Not Performed (<=1.20); dRVTT Screen Ratio 0.83 (<=1.20)
[2023-06-26 13:46] LABS: Alpha 1 Globulin 0.27 g/dL (0.19-0.46); Alpha 2 Globulin 0.63 g/dL (0.48-1.05); IgA 219 mg/dL (68-408); IgG 646 mg/dL (768-1632); IgM 88 mg/dL (35-263); Immunofixation Electrophoresis IFE Done; Kappa/Lambda Fr Light Ratio 1.95 (0.26-1.65); Total Protein-Electrophoresis 6.4 g/dL (6.3-8.2)
== END ==
LOC: HWLAB 07:48
PROVIDERS: ATTENDING PHYSICIAN Internal Medicine Hematology & Oncology; FAMILY PHYSICIAN Family Medicine
DX: C34.12 Malignant neoplasm of upper lobe, left bronchus or lung (principal); I63.89 Other cerebral infarction
CPT/HCPCS: 36415; 80053; 82232; 82784; 83521; 84155; 84165; 85025; 85610; 85613; 85730; 86146; 86147; 86334

== ENCOUNTER → 2023-09-14 07:59 | Outpatient (REF) | payer MEDICARE, OTHER, SELFPAY ==
[2023-09-14 10:45] LABS: ALT (SGPT) 20 U/L (0-35); AST (SGOT) 29 U/L (14-36); Albumin 3.9 g/dl (3.5-5.0); Alkaline Phosphatase 79 U/L (38-126); Blood Urea Nitrogen 21 mg/dl (7-17); Calcium 9.5 mg/dl (8.4-10.2); Carbon Dioxide 27 mmol/L (22-30); Chloride 105 mmol/L (98-107); Glucose 100 mg/dl (70-99); HDL Cholesterol 73 mg/dl; LDL Cholesterol, Calculated 133 mg/dl; Potassium 4.1 mmol/L (3.5-5.1); Sodium 137 mmol/L (135-145); Total Bilirubin 1.5 mg/dl (0.2-1.3); Total Cholesterol 225 mg/dl (50-199); Total Protein 6.1 g/dl (6.3-8.2); Triglyceride 99 mg/dl (10-149); Very Low Density Lipoprotein 19 mg/dl (0-30); eGFR > 60.00
[2023-09-14 11:10] LABS: TSH 6.85 uIU/ml (0.47-4.68)
== END ==
LOC: HWLAB 07:59
PROVIDERS: ATTENDING PHYSICIAN Family Medicine
DX: E03.9 Hypothyroidism, unspecified (principal); E78.2 Mixed hyperlipidemia
CPT/HCPCS: 36415; 80053; 80061; 84443

== ENCOUNTER → 2023-10-13 07:49 | Outpatient (REF) | payer MEDICARE, OTHER, SELFPAY | LOC: DHCBC/DCA 07:49 | PROVIDERS: ATTENDING PHYSICIAN Internal Medicine Cardiovascular Disease; FAMILY PHYSICIAN Family Medicine | DX: R06.02 Shortness of breath (principal) | CPT/HCPCS: 78452; 93017; A9500; J2785 ==

== ENCOUNTER → 2023-10-18 08:52 | Outpatient (REF) | payer MEDICARE, OTHER, SELFPAY ==
[2023-10-18 13:02] LABS: % Basophils 0.5 % (0-2); % Eosinophils 1.4 % (0-6); % Immature Granulocytes 0.4 % (0-0.5); % Lymphocytes 23.8 % (20.5-51.1); % Monocytes 7.6 % (1.7-9.3); % Neutrophils 66.3 % (42.2-75.2); Absolute Eosinophils 0.1 10^3/uL (0-0.7); Absolute Monocytes 0.7 10^3/uL (0.1-0.6); Absolute Neutrophils 5.6 10^3/uL (1.4-6.5); Hematocrit 40.7 % (37.0-47.0); Mean Corp Hgb Conc. 34.4 g/dL (33.0-37.0); Mean Corpuscular Volume 87.3 fL (81.0-99.0); Mean Platelet Volume 10.8 fL (7.4-10.4); Nucleated Red Blood Cells % 0 %; Platelet Count 244 10^3/uL (130-400); Red Blood Cell Count 4.66 10^6/uL (4.20-5.40); Red Cell Dist. Width 13.2 % (11.5-14.5); White Blood Cell Count 8.5 10^3/uL (4.8-10.8)
[2023-10-18 13:23] LABS: ALT (SGPT) 19 U/L (0-35); AST (SGOT) 31 U/L (14-36); Albumin 4.1 g/dl (3.5-5.0); Alkaline Phosphatase 88 U/L (38-126); Blood Urea Nitrogen 14 mg/dl (7-17); Calcium 9.7 mg/dl (8.4-10.2); Carbon Dioxide 29 mmol/L (22-30); Chloride 102 mmol/L (98-107); Glucose 94 mg/dl (70-99); Potassium 4.2 mmol/L (3.5-5.1); Sodium 140 mmol/L (135-145); Total Bilirubin 1.8 mg/dl (0.2-1.3); Total Protein 6.5 g/dl (6.3-8.2); eGFR > 60.00
== END ==
LOC: HWLAB 08:52
PROVIDERS: ATTENDING PHYSICIAN Internal Medicine Cardiovascular Disease; FAMILY PHYSICIAN Family Medicine
DX: E78.2 Mixed hyperlipidemia (principal); R06.02 Shortness of breath; R53.83 Other fatigue; R79.89 Other specified abnormal findings of blood chemistry
CPT/HCPCS: 36415; 80053; 85025

== ENCOUNTER 2023-10-19 07:33 | Day surgery (SDC) | payer MEDICARE, OTHER, SELFPAY ==
[2023-10-19 07:59] VITALS: BMI 27.6
[2023-10-19 08:15] VITALS: BP 127/96
--- NOTE | 2023-10-19 09:30 | ITS.CL.CATH ---
[employer] Make Up Helper - Catheterization
Cardiac Catheterization
Procedure Report:
LEFT HEART CATHETERIZATION
Date of Procedure: October 19, 2023
Referring: eDnice Crook
PROCEDURES:
1. Left heart catheterization, coronary angiogram.
2. Ultrasound-guided access
INDICATION: Patient is an 83-year-old female with past medical history of contrast dye allergy, hyperlipidemia, statin intolerance, hypothyroidism, recent stroke concerning for possible cardioembolic source who underwent a outpatient stress test
given abnormal calcium score with a small mild possibly reversible defect in the anterior, anterolateral and apical lateral carrasco who is now being referred for a left heart catheterization to rule out obstructive CAD. She denies any resting or
exertional chest discomfort or shortness of breath, no heart failure symptoms.
ACCESS: Right radial artery, 6 [place] sheath, and ultrasound-guided
HEMODYNAMICS : (mmHg)
AO (s/d) : 117/75
LV (s/d) : 125/8
LVEDP : 12
CORONARY FINDINGS
DOMINANCE: Right
LEFT MAIN: The left main artery is a large-caliber vessel which gives rise to the left anterior descending artery and the left circumflex artery. There is minimal luminal irregularities.
LEFT ANTERIOR DESCENDING: The left into descending artery is a large-caliber vessel which gives rise to multiple small to medium caliber diagonal branches as it courses to the anterior interventricular groove and wraps around the apex. There is a
long area of 40 to 50% stenosis in the mid LAD spanning across all 3 diagonal branches and a focal 40 to 50% stenosis in the distal LAD.
CIRCUMFLEX: The left circumflex artery is a medium caliber vessel which gives rise to 1 small caliber OM1 and a second medium caliber OM 2. 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 Otherwise there is 20 to
30% stenosis in the proximal left circumflex artery distal to OM1 and 30 to 40% stenosis in mid left circumflex proximal to OM 2.
RIGHT CORONARY ARTERY: The right coronary artery is a large-caliber, dominant vessel which gives rise to the right posterior descending artery and the right posterolateral system. There is mild diffuse atherosclerotic plaque.
SEDATION: 23 minutes of procedural sedation was utilized. An independent medical sociologist was present to assist with and help manage the patient's level of consciousness and physiologic status.
RADIATION SUMMARY: Fluoro Time (min): 1.7, Dose (mGy): 293.78, DAP (Gy.cm2) : 23.55
Closure Device: Vascular band over right radial artery, 10 cc of air.
CONCLUSIONS
1. The left anterior descending artery has a long area of 40 to 50% stenosis in the mid LAD spanning across all 3 diagonal branches and a focal 40 to 50% stenosis in the distal LAD.
2. 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 There is 20 to 30% stenosis in the proximal left circumflex artery distal to OM1 and 30 to 40% stenosis in mid left circumflex proximal to OM 2.
3. Normal LVEDP
RECOMMENDATIONS
1. In the setting of patient having no active cardiac complaints, would advocate for medical therapy and aggressive management of cardiovascular risk factors. Strongly recommend consideration for PCSK9 inhibitor as an outpatient.
2. Wean radial band per protocol
Copy to: Denice Crook
Linda Orellana MD, FACC, [facility]
[2023-10-19 09:36] VITALS: BP 124/74
--- NOTE | 2023-10-19 15:04 | ITS.CL.IMPLP ---
Public Employment Mediator - Implant Loop
Implant Loop
Procedure Report:
Primary Physician: Ronni Han DO
Primary Cable Armorer: Denice Crook DO
Procedure Date: 10/19/2023
Procedure: Placement of a loop recorder.
History/Indication:
1. See office H&P for complete history.
2. Patient is a pleasant 83-year-old female with a past medical history significant for hyperlipidemia, coronary artery disease, carotid artery disease, cryptogenic stroke with uneventful event monitor.
Method:
After informed consent was obtained, the patient was brought to the EP laboratory holding area in a fasting, non-sedated state. Peripheral access was established. The left chest was prepared and draped in a sterile fashion. A 'time out' was
called. Local anesthesia was injected in the subcutaneous tissue. The ILR was injected under the skin. Topical skin adhesive was applied. Following the procedure, the patient was taken to the recovery area in stable condition. No complications
were noted.
Device Data:
[employer]; Model# LINQII; Serial# [id number]
Conclusion:
Successful placement of a loop recorder.
Recommendations:
1. Follow-up will be arranged in the [facility] in 7-10 days for wound check.
2. Routine ILR care.
Mihai Juan DO
Clinical Cardiac Water Treatment Plant Operator
cc: Ronni Han DO; Denice Crook DO
== END 2023-10-19 12:17 | disposition home or self-care (01) ==
LOC: CATH 07:33
PROVIDERS: ATTENDING PHYSICIAN Internal Medicine Interventional Cardiology; FAMILY PHYSICIAN Family Medicine
DX: I25.10 Atherosclerotic heart disease of native coronary artery without angina pectoris (principal); Z09 Encounter for follow-up examination after completed treatment for conditions other than malignant neoplasm; E78.5 Hyperlipidemia, unspecified; Z86.73 Personal history of transient ischemic attack (TIA), and cerebral infarction without residual deficits; E03.9 Hypothyroidism, unspecified; R94.39 Abnormal result of other cardiovascular function study; Z91.041 Radiographic dye allergy status
CPT/HCPCS: 99152; 33285; 93458; C1764; C1894; Q9967

== ENCOUNTER → 2023-12-13 07:25 | Outpatient (REF) | payer MEDICARE, OTHER, SELFPAY ==
[2023-12-13 10:07] LABS: ALT (SGPT) 23 U/L (0-35); AST (SGOT) 30 U/L (14-36); Alkaline Phosphatase 86 U/L (38-126); Blood Urea Nitrogen 15 mg/dl (7-17); Calcium 9.4 mg/dl (8.4-10.2); Carbon Dioxide 27 mmol/L (22-30); Chloride 105 mmol/L (98-107); Glucose 94 mg/dl (70-99); HDL Cholesterol 82 mg/dl; LDL Cholesterol, Calculated 79 mg/dl; Potassium 4.3 mmol/L (3.5-5.1); Sodium 142 mmol/L (135-145); Total Bilirubin 1.5 mg/dl (0.2-1.3); Total Cholesterol 183 mg/dl (50-199); Total Protein 6.4 g/dl (6.3-8.2); Triglyceride 112 mg/dl (10-149); Very Low Density Lipoprotein 22 mg/dl (0-30); eGFR > 60.00
[2023-12-13 10:37] LABS: TSH Reflex To Free T4 2.31 uIU/ml (0.47-4.68)
== END ==
LOC: HWLAB 07:25
PROVIDERS: ATTENDING PHYSICIAN Family Medicine
DX: E03.9 Hypothyroidism, unspecified (principal); E78.2 Mixed hyperlipidemia; M85.80 Other specified disorders of bone density and structure, unspecified site; G60.9 Hereditary and idiopathic neuropathy, unspecified; F41.1 Generalized anxiety disorder; I25.10 Atherosclerotic heart disease of native coronary artery without angina pectoris; I69.30 Unspecified sequelae of cerebral infarction
CPT/HCPCS: 80053; 80061; 84443

== ENCOUNTER → 2024-03-27 08:07 | Outpatient (REF) | payer MEDICARE, OTHER, SELFPAY ==
[2024-03-27 11:24] LABS: ALT (SGPT) 23 U/L (0-35); AST (SGOT) 27 U/L (14-36); Albumin 4.1 g/dl (3.5-5.0); Alkaline Phosphatase 89 U/L (38-126); Blood Urea Nitrogen 14 mg/dl (7-17); Calcium 9.3 mg/dl (8.4-10.2); Carbon Dioxide 30 mmol/L (22-30); Chloride 101 mmol/L (98-107); Glucose 89 mg/dl (70-99); HDL Cholesterol 62 mg/dl; Potassium 4.2 mmol/L (3.5-5.1); Sodium 137 mmol/L (135-145); Total Bilirubin 1.4 mg/dl (0.2-1.3); Total Protein 6.3 g/dl (6.3-8.2); Triglyceride 192 mg/dl (10-149); Very Low Density Lipoprotein 38 mg/dl (0-30); eGFR > 60.00
[2024-03-27 11:52] LABS: TSH Reflex To Free T4 3.15 uIU/ml (0.47-4.68)
[2024-03-27 11:59] LABS: LDL Cholesterol, Calculated 130 mg/dl; Total Cholesterol 230 mg/dl (50-199)
== END ==
LOC: HWLAB 08:07
PROVIDERS: ATTENDING PHYSICIAN Family Medicine
DX: E03.9 Hypothyroidism, unspecified (principal); E78.2 Mixed hyperlipidemia; M85.80 Other specified disorders of bone density and structure, unspecified site; G60.9 Hereditary and idiopathic neuropathy, unspecified; F41.1 Generalized anxiety disorder; I25.10 Atherosclerotic heart disease of native coronary artery without angina pectoris; I69.30 Unspecified sequelae of cerebral infarction
CPT/HCPCS: 36415; 80053; 80061; 84443

== ENCOUNTER → 2024-04-26 07:37 | Outpatient (REF) | payer MEDICARE, OTHER, SELFPAY ==
[2024-04-26 10:02] LABS: Magnesium 2.1 mg/dl (1.6-2.3)
[2024-04-26 11:39] LABS: Vitamin D, 25-OH*** 25.8 ng/mL (30-80)
[2024-04-26 11:52] LABS: Cortisol, Random 12.5 ug/dl
[2024-04-26 12:44] LABS: Erythrocyte Sed Rate 6 mm/hour (0-20)
== END ==
LOC: HWLAB 07:37
PROVIDERS: ATTENDING PHYSICIAN Family Medicine
DX: E78.2 Mixed hyperlipidemia (principal); E03.9 Hypothyroidism, unspecified; I69.30 Unspecified sequelae of cerebral infarction; I25.10 Atherosclerotic heart disease of native coronary artery without angina pectoris; G60.9 Hereditary and idiopathic neuropathy, unspecified; K21.9 Gastro-esophageal reflux disease without esophagitis; R51.9 Headache, unspecified; R53.82 Chronic fatigue, unspecified; E55.9 Vitamin D deficiency, unspecified
CPT/HCPCS: 36415; 82306; 82533; 83735; 85652

== ENCOUNTER → 2024-06-28 08:12 | Outpatient (REF) | payer MEDICARE, OTHER, SELFPAY ==
[2024-06-28 10:16] LABS: ALT (SGPT) 18 U/L (0-35); AST (SGOT) 25 U/L (14-36); Albumin 4.2 g/dl (3.5-5.0); Alkaline Phosphatase 79 U/L (38-126); Blood Urea Nitrogen 11 mg/dl (7-17); Calcium 9.5 mg/dl (8.4-10.2); Carbon Dioxide 28 mmol/L (22-30); Chloride 105 mmol/L (98-107); Glucose 100 mg/dl (70-99); HDL Cholesterol 61 mg/dl; LDL Cholesterol, Calculated 120 mg/dl; Magnesium 1.9 mg/dl (1.6-2.3); Potassium 3.8 mmol/L (3.5-5.1); Sodium 141 mmol/L (135-145); Total Bilirubin 1.5 mg/dl (0.2-1.3); Total Cholesterol 213 mg/dl (50-199); Total Protein 6.5 g/dl (6.3-8.2); Triglyceride 161 mg/dl (10-149); Very Low Density Lipoprotein 32 mg/dl (0-30); eGFR > 60.00
[2024-06-28 10:21] LABS: Vitamin D, 25-OH*** 41.3 ng/mL (30-80)
[2024-06-28 10:35] LABS: TSH Reflex To Free T4 1.18 uIU/ml (0.47-4.68)
[2024-06-28 10:38] LABS: Cortisol, Random 7.3 ug/dl
[2024-06-28 11:10] LABS: Erythrocyte Sed Rate 7 mm/hour (0-20)
== END ==
LOC: HWLAB 08:12
PROVIDERS: ATTENDING PHYSICIAN Family Medicine
DX: E78.2 Mixed hyperlipidemia (principal); E03.9 Hypothyroidism, unspecified; I69.30 Unspecified sequelae of cerebral infarction; I25.10 Atherosclerotic heart disease of native coronary artery without angina pectoris; G60.9 Hereditary and idiopathic neuropathy, unspecified; K21.9 Gastro-esophageal reflux disease without esophagitis; R51.9 Headache, unspecified; R53.82 Chronic fatigue, unspecified; E55.9 Vitamin D deficiency, unspecified
CPT/HCPCS: 36415; 80053; 80061; 82306; 82533; 83735; 84443; 85652

== ENCOUNTER → 2024-07-03 10:21 | Outpatient (REF) | payer MEDICARE, OTHER, SELFPAY | LOC: RAD 10:21 | PROVIDERS: ATTENDING PHYSICIAN Family Medicine | DX: M54.16 Radiculopathy, lumbar region (principal); M25.551 Pain in right hip | CPT/HCPCS: 72110; 73502 ==

== ENCOUNTER → 2024-09-20 11:12 | Outpatient (REF) | payer MEDICARE, OTHER, SELFPAY | LOC: PAVMRI 11:12 | PROVIDERS: ATTENDING PHYSICIAN Family Medicine | DX: M47.816 Spondylosis without myelopathy or radiculopathy, lumbar region (principal); M54.16 Radiculopathy, lumbar region | CPT/HCPCS: 72148 ==

== ENCOUNTER → 2024-10-10 07:24 | Outpatient (REF) | payer MEDICARE, OTHER, SELFPAY ==
[2024-10-10 11:32] LABS: TSH 3.33 uIU/ml (0.47-4.68)
== END ==
LOC: HWLAB 07:24
PROVIDERS: ATTENDING PHYSICIAN Family Medicine
DX: E03.9 Hypothyroidism, unspecified (principal)
CPT/HCPCS: 36415; 84439; 84443

== ENCOUNTER → 2024-10-31 07:01 | Outpatient (REF) | payer MEDICARE, OTHER, SELFPAY ==
[2024-10-31 09:11] LABS: Hematocrit 40.3 % (37.0-47.0); Hemoglobin 13.7 g/dL (12.0-16.0); Mean Corp Hgb Conc. 34.0 g/dL (33.0-37.0); Mean Corpuscular Volume 90.0 fL (81.0-99.0); Nucleated Red Blood Cells % 0 %; Platelet Count 209 10^3/uL (130-400); Red Cell Dist. Width 12.9 % (11.5-14.5)
[2024-10-31 10:06] LABS: ALT (SGPT) 20 U/L (0-35); AST (SGOT) 28 U/L (14-36); Albumin 4.0 g/dl (3.5-5.0); Alkaline Phosphatase 71 U/L (38-126); Blood Urea Nitrogen 9 mg/dl (7-17); Calcium 9.3 mg/dl (8.4-10.2); Carbon Dioxide 27 mmol/L (22-30); Chloride 106 mmol/L (98-107); Glucose 97 mg/dl (70-99); HDL Cholesterol 68 mg/dl; LDL Cholesterol, Calculated 124 mg/dl; Potassium 3.9 mmol/L (3.5-5.1); Sodium 137 mmol/L (135-145); Total Protein 6.3 g/dl (6.3-8.2); Very Low Density Lipoprotein 26 mg/dl (0-30); eGFR > 60.00
[2024-10-31 10:44] LABS: TSH 4.53 uIU/ml (0.47-4.68)
[2024-10-31 10:50] LABS: Vitamin D, 25-OH*** 33.5 ng/mL (30-80)
== END ==
LOC: HWLAB 07:01
PROVIDERS: ATTENDING PHYSICIAN Family Medicine
DX: I25.10 Atherosclerotic heart disease of native coronary artery without angina pectoris (principal); E03.9 Hypothyroidism, unspecified; E78.2 Mixed hyperlipidemia; R53.82 Chronic fatigue, unspecified; M85.80 Other specified disorders of bone density and structure, unspecified site
CPT/HCPCS: 36415; 80053; 80061; 82306; 84443; 85025